=== PATIENT | female | born 1985 | race Caucasian/White ===

== ENCOUNTER → 2016-02-19 | Outpatient (CLI) | payer BC ==
[~2016-02-19] MED LIST: INSU1INJ SC; LEVO100T7 PO; LEVO150T9 PO; LEVOPOW36; MTR600X PO; ONDA4TAB10 SL; OXYC-57 PO; PRENTAB26 PO; ZNTT/150 PO
[2016-02-19 15:57] LABS: BASO % 0.3 %; BASO ABS # 0.03 K/uL (0-0.2); COMPLETE YES; EOS % 1.6 %; HEMATOCRIT 37.6 % (37-47); IG% 0.3 %; LYMPH % 17.4 %; LYMPH ABS # 2.02 K/uL (1.2-3.4); MEAN CELL VOLUME 90.6 fL (80-100); MEAN CORPUSCULAR HEMOGLOBIN 30.6 pg (25-34); MEAN CORPUSCULAR HGB CONC 33.8 g/dl (32-36); MEAN PLATELET VOLUME 10.6 fL (7.4-10.4); MONO % 7.9 %; NEUT % 72.5 %; PLATELET COUNT 328 K/uL (130-400); RED BLOOD COUNT 4.15 M/uL (4.2-5.4); WHITE BLOOD COUNT 11.61 K/uL (4.8-10.8)
[2016-02-19 16:18] LABS: URINE APPEARANCE CLEAR (CLEAR); URINE BILIRUBIN NEG (NEG); URINE COLOR YELLOW; URINE EPITHELIAL CELL AUTO >30 /lpf (0-5); URINE NITRITE NEG (NEG); URINE SPECIFIC GRAVITY 1.017 (1.000-1.030); UROBILINOGEN NEG (NEG)
[2016-02-19 16:35] LABS: MANUAL MICROSCOPIC REQUIRED? NO; REVIEW REQ? YES
[2016-02-19 17:01] LABS: URINE MUCUS PRESENT (NONE PRSENT)
[2016-02-22 14:03] LABS: CHLAMYDIA TRACH RNA*** NOT DETECTED (NOT DETECTED); GC (NEIS GONORRHOEAE)RNA** NOT DETECTED (NOT DETECTED)
== END | disposition home or self-care (01) ==
LOC: C.LAB1850 14:36
PROVIDERS: ATTEND Obstetrics & Gynecology
DX: Z34.00 Encounter for supervision of normal first pregnancy, unspecified trimester (principal)

== ENCOUNTER → 2016-04-01 | Outpatient (CLI) | payer BC ==
[2016-04-01 16:13] LABS: THYROID STIMULATING HORMONE 0.503 uIu/ml (0.300-4.500)
[2016-04-01 18:14] LABS: GTGD 50 Grams
== END | disposition home or self-care (01) ==
LOC: C.LAB1850 14:14
PROVIDERS: ATTEND Obstetrics & Gynecology
DX: Z34.02 Encounter for supervision of normal first pregnancy, second trimester (principal); O99.280 Endocrine, nutritional and metabolic diseases complicating pregnancy, unspecified trimester

== ENCOUNTER → 2016-04-15 | Outpatient (CLI) | payer BC ==
[2016-04-15 10:48] LABS: THYROID STIMULATING HORMONE 3.47 uIu/ml (0.300-4.500)
== END | disposition home or self-care (01) ==
LOC: C.LAB1850 08:28
PROVIDERS: ATTEND Obstetrics & Gynecology
DX: O28.9 Unspecified abnormal findings on antenatal screening of mother (principal); O99.280 Endocrine, nutritional and metabolic diseases complicating pregnancy, unspecified trimester; E03.9 Hypothyroidism, unspecified

== ENCOUNTER → 2016-06-24 | Outpatient (CLI) | payer BC ==
[2016-06-24 16:37] LABS: HEMATOCRIT 34.8 % (37-47)
[2016-06-24 16:56] LABS: URINE APPEARANCE CLEAR (CLEAR); URINE BILIRUBIN NEG (NEG); URINE COLOR YELLOW; URINE EPITHELIAL CELL AUTO >30 /lpf (0-5); URINE NITRITE NEG (NEG); URINE SPECIFIC GRAVITY 1.011 (1.000-1.030); UROBILINOGEN NEG (NEG)
[2016-06-24 16:59] LABS: MANUAL MICROSCOPIC REQUIRED? NO; REVIEW REQ? NO
== END | disposition home or self-care (01) ==
LOC: C.LAB1850 15:17
PROVIDERS: ATTEND Obstetrics & Gynecology
DX: Z34.03 Encounter for supervision of normal first pregnancy, third trimester (principal)

== ENCOUNTER 2016-08-05 15:08 | Outpatient (CLI) | payer BC ==
[~2016-08-05] VITALS: Ht 152.4 cm; Wt 85.5 kg
[~2016-08-05 15:08] MED LIST changes: -INSU1INJ SC; -LEVO100T7 PO; -LEVOPOW36; -MTR600X PO; -OXYC-57 PO
[2016-08-05 18:00] VITALS: Ht 152.4 cm; Wt 85.5 kg
[2016-08-05] MEDS ORDERED: INSU1INJ SC (18:07)
[2016-09-13] MEDS ORDERED: MTR600X PO (07:32)
[2016-09-13] MEDS ORDERED: OXYC-57 PO (07:32)
== END 2016-08-05 18:25 | disposition home or self-care (01) ==
LOC: C.OPB 15:08 → C.LD 15:08 → C.OPB 17:21
PROVIDERS: ATTEND Obstetrics & Gynecology
DX: O36.8130 Decreased fetal movements, third trimester, not applicable or unspecified (principal); Z3A.34 34 weeks gestation of pregnancy

== ENCOUNTER 2016-09-09 07:54 | Inpatient (IN) | payer BC ==
[~2016-09-09] VITALS: Ht 152.4 cm; Wt 86.0 kg
[~2016-09-09 07:54] MED LIST changes: +INSU1INJ SC; -ZNTT/150 PO
[2016-09-09] MEDS ORDERED: LEVOPOW36 (08:31)
[2016-09-09] MEDS ORDERED: LEVO100T7 PO (08:32)
[2016-09-09 08:37] VITALS: Ht 152.4 cm; Wt 86.0 kg
[2016-09-09] MEDS ORDERED: SODIUM CHLORIDE 0.9% 1000ML 1,000 ML IV SCH (08:58)
[2016-09-09] MEDS ORDERED: LACTATED RINGER'S 1000ML 1,000 ML IV PRN (08:58)
[2016-09-09] MEDS ORDERED: LACTATED RINGER'S 1000ML 500 ML IV PRN ×2 (08:58→22:49)
[2016-09-09] MEDS ORDERED: OXYTOCIN 30 UNITS/500ML NSS IV PRN (09:00)
[2016-09-09] MEDS ORDERED: DEXTROSE 50% 50 ML SYR IV PRN ×2 (09:00→10:15)
[2016-09-09 09:26] LABS: MEAN CELL VOLUME 90.9 fL (80-100); MEAN CORPUSCULAR HEMOGLOBIN 29.7 pg (25-34); MEAN CORPUSCULAR HGB CONC 32.7 g/dl (32-36); MEAN PLATELET VOLUME 10.7 fL (7.4-10.4); PLATELET COUNT 188 K/uL (130-400); RED BLOOD COUNT 4.07 M/uL (4.2-5.4); WHITE BLOOD COUNT 10.55 K/uL (4.8-10.8)
[2016-09-09] MEDS ORDERED: CEFAZOLIN IV 2,000 MG in DEXTROSE 5% 50ML 50 ML IV SCH (10:00)
[2016-09-09] MEDS: LACTATED RINGER'S 1000ML 1,000 ML IV SCH ×2 (10:06→18:11)
[2016-09-09] MEDS ORDERED: GLUCAGON FOR INJ 1 MG VIAL SQ PRN (10:15)
[2016-09-09] MEDS ORDERED: GLUCOSE 10 TABS/TUBE PO PRN (10:15)
[2016-09-09] MEDS ORDERED: GLUCOSE 40% GEL 15 GM TUBE PO PRN (10:15)
[2016-09-09] MEDS: DEXTROSE 5% 1000ML 1,000 ML IV SCH ×3 (10:18→21:39)
[2016-09-09] MEDS: INSULIN REGULAR 250 UNITS in SODIUM CHLORIDE 0.9% 250ML 250 ML IV SCH ×4 (13:35→23:36)
[2016-09-09] MEDS: CEFAZOLIN IV 1,000 MG in DEXTROSE 5% 50ML 50 ML IV PRN (19:08)
[2016-09-09] MEDS ORDERED: FENTANYL 2MCG/ML ROPIV 1.25MG/ML 100ML BAG EPI ONE (21:24)
[2016-09-09] MEDS ORDERED: FENTANYL CITRATE INJ 50 MCG/1 ML 2 ML VIAL ONE (21:24)
[2016-09-09] MEDS ORDERED: BUPIVACAINE 0.25% 30 ML VIAL ONE (21:24)
[2016-09-09] MEDS ORDERED: EpHEDrine SULFATE INJ 50 MG/ML AMP ONE (21:24)
[2016-09-09] MEDS ORDERED: NALOXONE HCL INJ 1 MG in SODIUM CHLORIDE 0.9% 1000ML 1,000 ML IV PRN (22:49)
[2016-09-09] MEDS ORDERED: NALBUPHINE HCL INJ 10 MG/ML AMP IV PRN (23:00)
[2016-09-09] MEDS ORDERED: DiphenhydrAMINE HCL 50 MG/ML VIAL IV PRN (23:00)
[2016-09-09] MEDS ORDERED: EpHEDrine SULFATE INJ 50 MG/ML AMP IV PRN (23:00)
[2016-09-09] MEDS ORDERED: NALOXONE HCL INJ 0.4 MG/1 ML VIAL/CARP IV PRN (23:00)
[2016-09-10] MEDS: LACTATED RINGER'S 1000ML 1,000 ML IV SCH ×2 (01:48→11:04)
[2016-09-10] MEDS: ONDANSETRON INJ 2 MG/ML 2 ML VIAL IV PRN ×2 (01:54→07:29)
[2016-09-10] MEDS: CEFAZOLIN IV 1,000 MG in DEXTROSE 5% 50ML 50 ML IV PRN ×2 (03:47→11:30)
[2016-09-10] MEDS: FENTANYL 2MCG/ML ROPIV 1.25MG/ML 100ML BAG EPI PRN ×4 (06:29→15:00)
[2016-09-10] MEDS: INSULIN REGULAR 250 UNITS in SODIUM CHLORIDE 0.9% 250ML 250 ML IV SCH ×4 (06:31→17:33)
[2016-09-10] MEDS: DEXTROSE 5% 1000ML 1,000 ML IV SCH ×2 (06:32→08:47)
--- NOTE | 2016-09-10 08:04 | Medical Student: [facility] ---
Medical Student Progress Note Date of Service Sep 10, 2016. Progress Note pt is a 31 yo at 39 and 4/7 weeks GA who presented yesterday for induction. She has been receiving pitocin. Due to the slow progression of labor , an IUPC has been placed to assess the strength of her contractions. baseline HR 130, moderate variability, accels present, no decels. [place] shows ctx every 2 to 4 minutes. Cervix exam by Dr. Bolivar shows /.
[2016-09-10] MEDS ORDERED: PROMETHAZINE HCL INJ 12.5 MG in SODIUM CHLORIDE 0.9% 50ML 50 ML IV STA (09:16)
[2016-09-10] MEDS ORDERED: CITRIC ACID/SODIUM CITRATE 15 ML UDC ONE ×2 (18:16→21:03)
[2016-09-10] MEDS ORDERED: LIDOCAINE/EPINEPHRINE 2% 1:200,000 20 ML SDV ONE (18:30)
[2016-09-10] MEDS ORDERED: CITRIC ACID/SODIUM CITRATE 15 ML UDC PO ONE (18:30)
[2016-09-10] MEDS ORDERED: OXYTOCIN INJ 10 UNITS/ML VIAL ONE (18:30)
[2016-09-10] MEDS ORDERED: MoRPHine SULFATE PF 1 MG/ML 10 ML AMP/VIAL ONE (18:31)
[2016-09-10] MEDS ORDERED: CEFAZOLIN IV 2,000 MG in DEXTROSE 5% 50ML 50 ML IV SCH (18:45)
[2016-09-10] MEDS ORDERED: ONDANSETRON INJ 2 MG/ML 2 ML VIAL ONE (21:26)
[2016-09-10] MEDS ORDERED: CARBOPROST TROMETHAMINE 250 MCG/ML AMP ONE (21:39)
[2016-09-10] MEDS ORDERED: SENNA 8.6 MG TAB PO PRN (22:00)
[2016-09-10] MEDS ORDERED: HYDROCORTISONE ACETATE 25 MG SUPP PR PRN (22:00)
[2016-09-10] MEDS ORDERED: BENZOCAINE 20% AER SPR 82.5 GM CAN EXT PRN (22:00)
[2016-09-10] MEDS ORDERED: SUPERCREAM 0.870 % 15GM JAR EXT PRN (22:00)
[2016-09-10] MEDS ORDERED: LANOLIN OINT EXT PRN ×2 (22:00)
[2016-09-10] MEDS ORDERED: DiphenhydrAMINE HCL 50 MG/ML VIAL IV PRN (22:00)
[2016-09-10] MEDS ORDERED: MAGNESIUM HYDROXIDE SUSP 30 ML UDC PO PRN (22:00)
[2016-09-10] MEDS ORDERED: CONTINUE MEDICATION ONE (22:15)
[2016-09-10] MEDS ORDERED: MoRPHine SULFATE PF 1 MG/ML 10 ML AMP/VIAL EPI PRN (22:15)
[2016-09-10] MEDS ORDERED: FENTANYL CITRATE INJ 50 MCG/1 ML 2 ML VIAL IV PRN (22:15)
[2016-09-10] MEDS ORDERED: ATROPINE SULFATE 0.1 MG/ML 5ML SYR IV PRN (22:15)
[2016-09-10] MEDS ORDERED: NO NARCOTICS OR SEDATIVES SCH (22:15)
[2016-09-10] MEDS ORDERED: KETOROLAC TROMETHAMINE 30 MG/ML VIAL IV. PRN ×2 (22:15)
[2016-09-10] MEDS ORDERED: EpHEDrine SULFATE INJ 50 MG/ML AMP IV PRN (22:15)
[2016-09-10] MEDS ORDERED: ONDANSETRON INJ 2 MG/ML 2 ML VIAL IV PRN (22:15)
[2016-09-10] MEDS ORDERED: MEPERIDINE HCL 25 MG/ML CARP IV PRN (22:15)
--- NOTE | 2016-09-10 22:16 | Anesthesiology Progress Note ---
Anesthesia Post Op Note Date & Time Sep 10, 2016 at 22:16 Vital Signs Pain Intensity: 2.0 Notes Mental Status: alert / awake / arousable, participated in evaluation Pt Amnestic to Procedure: Yes Nausea / Vomiting: adequately controlled Pain: adequately controlled Airway Patency, RR, SpO2: stable & adequate BP & HR: stable & adequate Hydration State: stable & adequate Neuraxial Anesthesia: was administered, sensory block is resolving Anesthetic Complications: no major complications apparent
[2016-09-10] MEDS: OXYTOCIN INJ 20 UNITS in LACTATED RINGER'S 1000ML 1,000 ML IV SCH (22:47)
--- NOTE | 2016-09-10 23:22 | [facility] Post Operative Brief Note ---
Immediate Operative Summary Operative Date Sep 10, 2016. Pre-Operative Diagnosis Failure to descend Post-Operative Diagnosis Failure to descend Procedure(s) Performed Primary caesarean section of live female child at [address] Frazier Truck Driver Heavy Surgeon(s) Mery Lu RN Estimated Blood Loss 500CC Findings normal anatomy Specimens Placenta hold Cord Blood cord gases Drains Medina Anesthesia General Complication(s) None Disposition L&D
[2016-09-11] VITALS (22 sets, daily range): BP systolic 105–120; BP diastolic 65–73; PULSE 70–87; TEMP 36.4–37; O2SAT 90–99
--- NOTE | 2016-09-11 00:17 | OPERATIVE REPORT ---
DATE OF OPERATION: 09/10/2016 PREOPERATIVE DIAGNOSIS: Failure to descend. POSTOPERATIVE DIAGNOSIS: Failure to descend. PROCEDURE: Low transverse section. SURGEON: Dr. Frazier. ASSISTING: Mery Lu RN. ESTIMATED BLOOD LOSS: 500 mL FINDINGS: Normal anatomy. SPECIMENS: Cord gases, cord blood. DRAINS: [place] catheter. ANESTHETIC: Epidural. COMPLICATIONS: None. DISPOSITION: Labor and delivery. Note, the patient was followed by Dr. Rosado for the day because of an emergency situation that involved Dr. Rosado and another patient. I performed the for her as she was tied up in the operating room with the other patient and the patient Zenaida required section. I reviewed with the patient the consent. I discussed risks including infection, injury to bowel, bladder, ureter, vessels, deep vein thrombosis and pulmonary embolus. With this being said, the patient had a section for failure to progress and for pushing well over 3 hours. DESCRIPTION OF PROCEDURE: The patient taken to the operating room, prepped and draped in supine position with a leftward tilt. Medina catheter being placed by nursing. Epidural anesthetic was adequate and tested with pickups with teeth and IV Ancef 2 grams given preoperatively. Scalpel used to make a Pfannenstiel incision cutting down through subcutaneous fat to the fascia in the midline. Rectus muscles split. Peritoneal cavity entered in a superior location. Peritoneal cavity opening then enlarged, bladder retractor placed. Metzenbaums used to dissect away the low bladder flap and then the lower segment of the uterus was visualized. A transverse incision made with scalpel. Entry was done actually bluntly and then opening extended with the dredge pump operator's fingers. Baby was delivered by flexing the head and gentle pressure on the abdomen. No excessive force was used. Live vigorous . Cord clamped and cut. The fluid was clear and there was no nuchal cord. Cord gases obtained. Cord blood obtained. Placenta removed with gentle traction. We exteriorized the uterus. IV Pitocin was started. Uterus was initially boggy. 0.25 mg of Hemabate was then injected directly into the uterus, taking care to avoid intravascular injection. At this stage, we ensured all placenta was removed. Uterus was then closed in the usual fashion. There was no extension, so we closed the uterus in 2 layers, 0 Monocryl locked and second reinforcing 0 Monocryl. After generous irrigation and suction of cul-de-sac and bladder regions, uterus was placed back into the peritoneal cavity. After reinspection, hemostasis was excellent. Retractors removed from the peritoneal cavity. Sponge and instrument counts correct. Urine was clear at this stage. Fascia was closed with 0 Vicryl, subcutaneous fat was closed with 2-0 Vicryl, and 4-0 subcuticular Monocryl closure of the skin and Steri-Strips applied. Sponge and instrument counts correct. I attest to the content of the Intraoperative Record and any orders documented therein. Any exceptions are noted below. MTDD
[2016-09-11] MEDS: ONDANSETRON INJ 2 MG/ML 2 ML VIAL IV PRN (03:19)
--- NOTE | 2016-09-11 06:09 | OB/GYN Progress Note ---
[employer] Progress Note Date of Service Sep 11, 2016. Subjective conversation w/ patient, physical exam, chart review, lab review Ambulation: limited ambulation Voiding: dubois catheter in place Passing Gas: No Diet Tolerance: Clear Liquids Lochia: Moderate Feeding Type: Breast Feeding Pain: 1/10 controlled with pain meds Review of Systems Constitutional: No fever Respiratory: No shortness of breath Cardiac: No chest pain Abdomen: + nausea, + vomiting Female : No dysuria Objective Vital Signs Date Time Temp Pulse Resp B/P (MAP) Pulse Ox O2 Delivery O2 Flow Rate FiO2 09/11/16 04:30 18 99 09/11/16 04:00 36.6 80 20 110/70 (83) 99 Room Air 09/11/16 03:30 18 99 09/11/16 02:30 18 99 09/11/16 01:30 18 99 09/11/16 00:30 Room Air 09/11/16 00:30 36.4 83 18 109/70 (83) 99 Room Air 09/11/16 00:30 20 99 Physical Exam General Appearance: WELL-APPEARING Respiratory/Chest: lungs clear, normal breath sounds, no respiratory distress Cardiovascular: regular rate, rhythm Abdomen: normal bowel sounds, non tender, soft Fundus: Firm, Relation to Umbilicus (4 finger breaths below) Incision Description: Clean, Dry & Intact Extremities: non-tender, normal inspection, + pedal edema (1+) Laboratory Results Last 24 Hours Test 09/10/16 06:30 09/10/16 07:33 09/10/16 08:32 09/10/16 09:33 Bedside Glucose 101 mg/dl 82 mg/dl 90 mg/dl 95 mg/dl Test 09/10/16 10:26 09/10/16 11:35 09/10/16 12:33 09/10/16 13:34 Bedside Glucose 86 mg/dl 80 mg/dl 93 mg/dl 98 mg/dl Test 09/10/16 14:30 09/10/16 15:33 09/10/16 16:31 09/10/16 17:30 Bedside Glucose 85 mg/dl 98 mg/dl 104 mg/dl 91 mg/dl Test 09/10/16 18:31 09/10/16 22:39 09/11/16 05:58 Bedside Glucose 102 mg/dl 129 mg/dl Medications Current Inpatient Medications Medications (Trade) Dose Ordered Sig/Kareen Route Start Time Stop Time Status Last Admin Dose Admin Sodium Chloride 1,000 ml @ 0 mls/hr Q0M IV 09/09/16 08:58 10/09/16 08:57 Dextrose 1,000 ml @ 0 mls/hr Q0M IV 09/09/16 08:58 10/09/16 08:57 09/10/16 08:47 100 MLS/HR Insulin Human Regular 250 units/ Sodium Chloride 252.5 ml @ 0 mls/hr DAILY@1130 IV 09/09/16 11:30 10/09/16 11:29 09/10/16 17:33 0.5 MLS/HR Dextrose (Dextrose 50% 50ML Syringe) 25-50mL of 50% DW IV ... UD PRN IV 09/09/16 09:00 10/09/16 08:59 Glucose (Glucose 40% Gel) 15-30 GRAMS 15 GRAMS... UD PRN PO 09/09/16 10:15 10/09/16 10:14 Glucose (Glucose Chew Tab) 4-8 Tablets 4 Tabl... UD PRN PO 09/09/16 10:15 10/09/16 10:14 Dextrose (Dextrose 50% 50ML Syringe) 25-50ML OF 50% DW IV FOR... UD PRN IV 09/09/16 10:15 10/09/16 10:14 Glucagon (Glucagon Inj) 1 mg UD PRN SQ 09/09/16 10:15 10/09/16 10:14 Naloxone HCl (Narcan Inj) 0.1 mg UD PRN IV 09/09/16 23:00 09/11/16 15:45 Lactated Ringer's 500 ml @ 999 mls/hr Q31M PRN IV 09/09/16 22:49 09/11/16 15:45 Ephedrine Sulfate (EpHEDrine SULFATE INJ) 10 mg Q5M PRN IV 09/09/16 23:00 09/11/16 15:45 Diphenhydramine HCl (Benadryl Inj) 25 mg Q6H PRN IV 09/09/16 23:00 09/11/16 15:45 Nalbuphine HCl (Nubain Inj) 5 mg Q10M PRN IV 09/09/16 23:00 09/11/16 15:45 Naloxone HCl 1 mg/ Sodium Chloride 1,002.5 ml @ 50 mls/hr Q20H3M PRN IV 09/09/16 22:49 09/11/16 15:45 Ondansetron HCl (Zofran Inj) 4 mg Q6H PRN IV 09/09/16 23:00 09/11/16 15:45 09/11/16 03:19 4 MG Oxytocin 20 units/ Lactated Ringer's 1,002 ml @ 125 mls/hr Q8H1M IV 09/10/16 22:30 10/10/16 22:29 09/10/16 22:47 125 MLS/HR Lactated Ringer's 1,000 ml @ 125 mls/hr Q8H IV 09/11/16 06:30 10/11/16 06:29 Ketorolac Tromethamine (Toradol Inj) 30 mg Q6H PRN IV. 09/11/16 15:45 09/16/16 15:44 Meperidine HCl (Demerol Inj) 50 mg Q4H PRN IV 09/11/16 15:45 09/25/16 15:44 Meperidine HCl (Demerol Inj) 75 mg Q4H PRN IV 09/11/16 15:45 09/25/16 15:44 Oxycodone/ Acetaminophen (Percocet 5-325mg Tab) 1 tab Q4H PRN PO 09/11/16 15:45 09/25/16 15:44 Oxycodone/ Acetaminophen (Percocet 5-325mg Tab) 2 tab Q4H PRN PO 09/11/16 15:45 09/25/16 15:44 Ibuprofen (Motrin Tab) 600 mg Q4H PRN PO 09/10/16 22:00 10/10/16 21:59 Promethazine HCl 25 mg/Sodium Chloride 51 ml @ 204 mls/hr Q4H PRN IV 09/11/16 15:45 10/11/16 15:44 Ondansetron HCl (Zofran Inj) 4 mg Q4H PRN IV 09/11/16 15:45 10/11/16 15:44 Prenat Multivit/ [place]/Iron/Folic Ac ( Vitamin Tab) 1 tab DAILY PO 09/11/16 08:00 10/11/16 07:59 Bisacodyl (Dulcolax Tab) 5 mg HS ONCE PO 09/11/16 22:00 09/11/16 22:01 Bisacodyl (Dulcolax Supp) 10 mg PRN PRN MA 09/12/16 22:45 10/12/16 22:44 Docusate Sodium (coLACE CAP) 100 mg BID PO 09/11/16 08:00 10/11/16 07:59 Magnesium Hydroxide (Milk Of Magnesia Susp) 30 ml HS PRN PO 09/10/16 22:00 10/10/16 21:59 Cocaine HCl (Supercream 0.870% Cr) BID PRN EXT 09/10/16 22:00 09/24/16 21:59 Lanolin (Lanolin Oint) PRN PRN EXT 09/10/16 22:00 10/10/16 21:59 Hydrocortisone Acetate (Anusol Hc Supp) 25 mg BID PRN MA 09/10/16 22:00 10/10/16 21:59 Benzocaine (Dermoplast Aero Spr) 1 appln PRN PRN EXT 09/10/16 22:00 10/10/16 21:59 Zolpidem Tartrate (Ambien Tab) 5 mg HSZ PRN PO 09/11/16 15:45 10/11/16 15:44 Simethicone (Mylicon Chew Tab) 80 mg QID PO 09/11/16 08:00 10/11/16 08:59 Diphenhydramine HCl (Benadryl Cap) 25 mg QID PRN PO 09/11/16 15:45 10/11/16 15:44 Senna (Senokot Tab) 17.2 mg HS PRN PO 09/10/16 22:00 10/10/16 21:59 Ondansetron HCl (Zofran Inj) 4 mg ONE PRN IV 09/10/16 22:15 Ketorolac Tromethamine (Toradol Inj) 30 mg Q6H PRN IV. 09/10/16 22:15 09/11/16 15:45 09/10/16 22:44 30 MG Meperidine HCl (Demerol Inj) 25 mg Q15M PRN IV 09/10/16 22:15 09/11/16 15:45 Miscellaneous Information (Dc Intraspinal Morphine) 1 ea TODAY@1545 N/A 09/11/16 15:45 09/11/16 15:46 Miscellaneous Information (No Narcotics Or Sedatives) 1 ea UD N/A 09/10/16 22:15 09/11/16 15:45 Morphine Sulfate (Duramorph Pf Inj) TODAY PRN EPI 09/10/16 22:15 09/11/16 15:45 Assessment and Plan Post-Op Day Number: 1 Continue Routine Care: A/P: This is a 31y/o female, , POD#1 s/p for FTD. She is ambulating and clinically stable. Plan: - Vitals signs are reviewed and WNL (Tmax 36.6 ) - Last Hgb is 9.9 (09/11) - Blood type A+, GBS pos, Rubella Immune - Routine post operative care - Encourage ambulation, monitor and control pain with medication as needed, continue with regular diet as tolerated and monitor lochia - Stool softeners and sitz bath recommended - Encourage breast feeding and educate about breast feeding Resident Physician Supervision Note: I was present with Dr. Mast during the history and exam. I discussed the case with the resident and agree with the findings and plan as documented in the note. Any exceptions or clarifications are listed here: POD#1 for failure to descend. Doing well. Will plan for ambulation and removal of dubois later today. Continue routine postop care. Documented By: Tawana Rosado Resident Involvement: Resident Care Provided Care Provided: OB Delivery
[2016-09-11] MEDS ORDERED: LACTATED RINGER'S 1000ML 1,000 ML IV SCH (06:30)
[2016-09-11 06:41] LABS: BASO % 0.1 %; BASO ABS # 0.02 K/uL (0-0.2); COMPLETE YES; EOS % 0.2 %; HEMATOCRIT 29.7 % (37-47); IG% 0.5 %; LYMPH % 10.8 %; LYMPH ABS # 2.11 K/uL (1.2-3.4); MEAN CELL VOLUME 91.1 fL (80-100); MEAN CORPUSCULAR HEMOGLOBIN 30.4 pg (25-34); MEAN CORPUSCULAR HGB CONC 33.3 g/dl (32-36); MEAN PLATELET VOLUME 10.3 fL (7.4-10.4); MONO % 8.9 %; NEUT % 79.5 %; PLATELET COUNT 198 K/uL (130-400); RED BLOOD COUNT 3.26 M/uL (4.2-5.4); WHITE BLOOD COUNT 19.51 K/uL (4.8-10.8)
[2016-09-11] MEDS: OXYTOCIN INJ 20 UNITS in LACTATED RINGER'S 1000ML 1,000 ML IV SCH (06:44)
[2016-09-11] MEDS ORDERED: NURSING VERBAL MED ORDER ONE (06:45)
[2016-09-11] MEDS ORDERED: PROMETHAZINE HCL INJ 25 MG in SODIUM CHLORIDE 0.9% 50ML 50 ML IV ONE (07:00)
[2016-09-11] MEDS: PRENATAL VITAMIN TAB PO SCH (08:00)
[2016-09-11] MEDS: DOCUSATE SODIUM 100 MG CAP PO SCH ×2 (08:00→19:39)
[2016-09-11] MEDS: SIMETHICONE 80 MG CHEW PO SCH ×3 (08:00→19:39)
[2016-09-11] MEDS ORDERED: ONDANSETRON INJ 2 MG/ML 2 ML VIAL IV PRN (15:45)
[2016-09-11] MEDS ORDERED: ZOLPIDEM TARTRATE 5 MG TAB PO PRN (15:45)
[2016-09-11] MEDS ORDERED: KETOROLAC TROMETHAMINE 30 MG/ML VIAL IV. PRN (15:45)
[2016-09-11] MEDS ORDERED: PROMETHAZINE HCL INJ 25 MG in SODIUM CHLORIDE 0.9% 50ML 50 ML IV PRN (15:45)
[2016-09-11] MEDS ORDERED: DC INTRASPINAL MORPHINE SCH (15:45)
[2016-09-11] MEDS ORDERED: MEPERIDINE HCL 50 MG/ML CARP IV PRN ×2 (15:45)
[2016-09-11] MEDS ORDERED: OXYCODONE/ACETAMINOPHEN 5-325 TAB PO PRN (15:45)
[2016-09-11] MEDS: IBUPROFEN 600 MG TAB PO PRN (17:29)
[2016-09-11] MEDS ORDERED: BISACODYL 5 MG TABEC ONE (19:35)
[2016-09-11] MEDS: OXYCODONE/ACETAMINOPHEN 5-325 TAB PO PRN (19:40)
[2016-09-11] MEDS ORDERED: BISACODYL 5 MG TABEC PO ONE (22:00)
[2016-09-12] MEDS: OXYCODONE/ACETAMINOPHEN 5-325 TAB PO PRN ×4 (07:26→23:54)
[2016-09-12] MEDS: IBUPROFEN 600 MG TAB PO PRN ×4 (07:27→23:53)
[2016-09-12] MEDS: DOCUSATE SODIUM 100 MG CAP PO SCH ×2 (07:28→20:02)
[2016-09-12] MEDS: SIMETHICONE 80 MG CHEW PO SCH ×4 (07:28→20:02)
[2016-09-12 07:50] VITALS: BP 118/72; PULSE 91; TEMP 36.8; O2SAT 96
[2016-09-12] MEDS: PRENATAL VITAMIN TAB PO SCH (08:00)
--- NOTE | 2016-09-12 08:32 | Progress Note ---
Subjective Sep 12, 2016. Subjective conversation w/ patient, physical exam, lab review Ambulation: ambulating normally Voiding: no voiding problems, dubois catheter in place Diet Tolerance: Regular Diet Lochia: Small Feeding Type: Breast Feeding Objective Vital Signs Date Time Temp Pulse Resp B/P (MAP) Pulse Ox O2 Delivery O2 Flow Rate FiO2 09/11/16 23:40 37.0 81 16 115/66 (82) 09/11/16 23:40 Room Air 09/11/16 19:45 36.7 87 18 105/71 (82) 96 Room Air 09/11/16 16:05 96 Room Air 09/11/16 16:05 36.8 80 18 120/73 (89) 96 Room Air 09/11/16 15:30 18 96 09/11/16 14:30 20 93 09/11/16 13:30 18 92 09/11/16 12:30 18 98 09/11/16 12:10 36.5 84 20 115/65 (82) 09/11/16 11:30 16 99 09/11/16 10:30 18 98 09/11/16 09:30 18 98 09/11/16 09:00 36.5 70 18 119/66 (83) 98 Nasal Cannula 2.0 09/11/16 09:00 Nasal Cannula Physical Exam General Appearance: WELL-APPEARING Respiratory/Chest: lungs clear Abdomen: non tender Fundus: Firm Incision Description: Clean, Dry & Intact Extremities: no calf tenderness Laboratory Results Last 24 Hours Test 09/12/16 06:12 Hemoglobin 9.7 g/dL Hematocrit 30.0 % Assessment and Plan Problem List Medical Problems: (1) First trimester Status: Acute (2) Nausea and vomiting Status: Acute Post-Op Day#: 2 Continue Routine Care: ccc
--- NOTE | 2016-09-12 08:33 | Discharge Instructions ---
Discharge Instructions Date of Service Sep 12, 2016. Admission Reason for Admission: Induction Discharge Discharge Diagnosis / Problem: c/s Discharge Goals Goal(s): Routine recovery after Activity Recommendations Activity Limitations: per Instructions/Follow-up section . Instructions / Follow-Up Instructions / Follow-Up ACTIVITY RECOMMENDATIONS: * Gradual return to full activity over the next 2-3 weeks. * No lifting - nothing heavier than baby over the next 2-3 weeks. * Do not engage in vigorous exercise, sexual activity or sports until cleared by your physician. * Do not drive or operate any motorized equipment until cleared by your physician. * You may shower/bathe daily. MEDICATIONS: For discomfort or pain, you may use Acetaminophen (Tylenol), Ibuprofen (Advil), or Naproxen (Aleve) following the package directions. For constipation you may use Colace following the package directions. BREAST CARE: If you are not breast feeding: * Wear a supportive bra 24 hours a day for one to two weeks. * Avoid stimulating your breasts and nipples as much as possible during the first few weeks after delivery. * When taking a shower, have the warm water hit your back, not breasts. * When your breasts feel full, apply ice packs. Usually three to four times a day helps ease the discomfort. * Take a mild pain medication (Tylenol / Motrin) when you are uncomfortable. If breast feeding: * Use breast milk to lubricate nipples. Lansinoh cream may be used for sore nipples. You do not need to remove cream prior to breast feeding. If using a different brand of cream, check the label for directions regarding removal of cream prior to nursing. * Wear a supportive bra. * If having problems with breasts or breast feeding, call a surgical product sales consultant or your health care provider. SPECIAL CARE INSTRUCTIONS: When you are discharged from the hospital, it is important for you to follow the instructions listed below: * During the first week at home, you should be able to care for yourself and your baby. In addition, the usual light household activities are encouraged. * Limit your activities to the way you feel. Do not try to clean the house or move furniture. Be sensible. * If you actively engage in sports and have done so up until the time of your delivery, you may resume these activities as soon as you feel able. This may take up to one month or even longer. Use good judgment. * Continue to take your vitamins for at least six weeks after the of your baby. * Your diet need not be limited unless you were on a special diet before your delivery. Breast-feeding mothers need around 2500 calories per day and at least 64-80 ounces of fluid per day (8 to 10 glasses). * You should eat foods from the four major food groups. Crash diets or fad diets are to be avoided. Eating lean meats, fresh fruits and vegetables, low-fat dairy products, high fiber foods and a regular exercise program, will help you get back to your pre- weight without putting your health at risk. * Constipation is sometimes a problem after delivery. Take a mild laxative as needed. If breast feeding, Milk of Magnesia is acceptable to use. You may use a suppository or Fleets enema. * A daily shower or tub bath is suggested. Wash incision daily with warm soapy water and pat dry. It doesn't need to be covered unless drainage is present. * A bloody vaginal discharge will usually continue until around four weeks . A small amount of bleeding may continue for as long as six weeks. Vaginal discharge changes from the bright red bleeding after delivery to pink then brownish and finally yellowish-pink before becoming white and disappearing. * Bleeding may increase with activity. Your first period may come in 4-8 weeks. If you are breast feeding, your period may be delayed even longer. * [place] (sex) can begin whenever both you and your partner feel comfortable and do not have any form of genital infection. It is recommended that you wait at least six weeks for internal and external healing to occur. If you have questions, please talk to your health care practitioner. A condom should be used to prevent infection and . * Foreplay, gentle intercourse and lubrication is very important the first several times to prevent pain. A water-based lubricant such as K-Y jelly or Astroglide may be used. * If you have RH negative blood and your baby is RH positive, you will receive RHOGAM by injection prior to discharge. The nurse will give you a card to keep with you that has the date and place that you received RHOGAM after delivery. * During your care, you had a Rubella screen done to check for the presence of rubella antibodies in your blood. If your test was negative, you will receive a Rubella vaccine prior to discharge. This vaccine may cause a fever, soreness at the injection site and flu-like symptoms. If these symptoms persist, notify your health care practitioner. is not advised for one month after a Rubella vaccine. * Verbalizes understanding of car seat law as reviewed with patient nursing. * Car Seat hand-out given and reviewed with patient by nursing. * Shaken baby information reviewed with patient by nursing. Call you doctor if: * Heavy bleeding (saturating several pads an hour) or passing clots the size of your fist. * A fever >101 degrees F (38.3 degrees C) on two occasions four hours apart and /or chills. * Unusual pain in the pelvic or vaginal areas. * Call the doctor for any increased redness, drainage or swelling around the incision and any pain unrelieved by prescribed pain medication. * "Baby Blues" lasting longer than two weeks. If you have any questions or concerns, call your health care practitioner at . FOLLOW UP VISIT: * Please call the office at to schedule a 6 week examination. It is important you keep this appointment. It is important for you to make arrangements for either yearly or twice yearly check-ups thereafter. Current Hospital Diet Patient's current hospital diet: Regular OB Diet Discharge Diet Recommended Diet: Regular OB Diet Procedures Procedures Performed: Primary caesarean section of live female child at 2133 Pending Studies Studies pending at discharge: no Medical Emergencies . Who to Call and When: Medical Emergencies: If at any time you feel your situation is an emergency, please call [phone] immediately. . Non-Emergent Contact Non-Emergency issues call your: Wastewater Operator . . "Provider Documentation" section prepared by Kelechi Frazier. . VTE Core Measure Inpt VTE Proph given/why not?: Mao Hathaway, SCD's
[2016-09-12] MEDS: LEVOTHYROXINE 100 MCG TAB PO SCH (12:11)
[2016-09-12 16:00] VITALS: BP 132/85; PULSE 85; TEMP 36.8; O2SAT 96; O2SAT 97
[2016-09-12] MEDS ORDERED: BISACODYL 10 MG SUPP PR PRN (22:45)
[2016-09-13] VITALS: BP 117/77; PULSE 83; TEMP 36.8
--- NOTE | 2016-09-13 05:59 | OB/GYN Progress Note ---
IC DESIGN ENGINEER Progress Note Date of Service Sep 13, 2016. Subjective conversation w/ patient, physical exam, chart review, lab review Ambulation: ambulating normally Passing Gas: Yes Diet Tolerance: Regular Diet Lochia: Moderate Feeding Type: Breast Feeding Pain: 4/10 controlled with pain meds Review of Systems Constitutional: No fever Cardiac: No chest pain Abdomen: No nausea, No vomiting Female : No dysuria Objective Vital Signs Date Time Temp Pulse Resp B/P (MAP) Pulse Ox O2 Delivery O2 Flow Rate FiO2 09/13/16 00:00 Room Air 09/13/16 00:00 36.8 83 18 117/77 (90) Room Air 09/12/16 16:00 36.8 85 20 132/85 (101) 97 Room Air 09/12/16 16:00 96 Room Air 09/12/16 07:50 36.8 91 20 118/72 (87) 96 Room Air 09/12/16 07:50 96 Room Air Physical Exam General Appearance: WELL-APPEARING Respiratory/Chest: lungs clear, normal breath sounds, no respiratory distress Cardiovascular: regular rate, rhythm Abdomen: normal bowel sounds, non tender, soft Fundus: Firm, Relation to Umbilicus (4 finger breaths below) Incision Description: Clean, Dry & Intact Extremities: non-tender, no pedal edema Laboratory Results Last 24 Hours Test 09/12/16 06:12 Hemoglobin 9.7 g/dL Hematocrit 30.0 % Medications Current Inpatient Medications Medications (Trade) Dose Ordered Sig/Kareen Route Start Time Stop Time Status Last Admin Dose Admin Dextrose (Dextrose 50% 50ML Syringe) 25-50mL of 50% DW IV ... UD PRN IV 09/09/16 09:00 10/09/16 08:59 Glucose (Glucose 40% Gel) 15-30 GRAMS 15 GRAMS... UD PRN PO 09/09/16 10:15 10/09/16 10:14 Glucose (Glucose Chew Tab) 4-8 Tablets 4 Tabl... UD PRN PO 09/09/16 10:15 10/09/16 10:14 Dextrose (Dextrose 50% 50ML Syringe) 25-50ML OF 50% DW IV FOR... UD PRN IV 09/09/16 10:15 10/09/16 10:14 Glucagon (Glucagon Inj) 1 mg UD PRN SQ 09/09/16 10:15 10/09/16 10:14 Oxytocin 20 units/ Lactated Ringer's 1,002 ml @ 125 mls/hr Q8H1M IV 09/10/16 22:30 10/10/16 22:29 09/11/16 06:44 125 MLS/HR Lactated Ringer's 1,000 ml @ 125 mls/hr Q8H IV 09/11/16 06:30 10/11/16 06:29 Ketorolac Tromethamine (Toradol Inj) 30 mg Q6H PRN IV. 09/11/16 15:45 09/16/16 15:44 Meperidine HCl (Demerol Inj) 50 mg Q4H PRN IV 09/11/16 15:45 09/25/16 15:44 Meperidine HCl (Demerol Inj) 75 mg Q4H PRN IV 09/11/16 15:45 09/25/16 15:44 Oxycodone/ Acetaminophen (Percocet 5-325mg Tab) 1 tab Q4H PRN PO 09/11/16 15:45 09/25/16 15:44 09/12/16 23:54 1 TAB Oxycodone/ Acetaminophen (Percocet 5-325mg Tab) 2 tab Q4H PRN PO 09/11/16 15:45 09/25/16 15:44 Ibuprofen (Motrin Tab) 600 mg Q4H PRN PO 09/10/16 22:00 10/10/16 21:59 09/12/16 23:53 600 MG Promethazine HCl 25 mg/Sodium Chloride 51 ml @ 204 mls/hr Q4H PRN IV 09/11/16 15:45 10/11/16 15:44 Ondansetron HCl (Zofran Inj) 4 mg Q4H PRN IV 09/11/16 15:45 10/11/16 15:44 Prenat Multivit/ [place]/Iron/Folic Ac ( Vitamin Tab) 1 tab DAILY PO 09/11/16 08:00 10/11/16 07:59 Bisacodyl (Dulcolax Supp) 10 mg PRN PRN PA 09/12/16 22:45 10/12/16 22:44 Docusate Sodium (coLACE CAP) 100 mg BID PO 09/11/16 08:00 10/11/16 07:59 09/12/16 20:02 100 MG Magnesium Hydroxide (Milk Of Magnesia Susp) 30 ml HS PRN PO 09/10/16 22:00 10/10/16 21:59 Cocaine HCl (Supercream 0.870% Cr) BID PRN EXT 09/10/16 22:00 09/24/16 21:59 Lanolin (Lanolin Oint) PRN PRN EXT 09/10/16 22:00 10/10/16 21:59 Hydrocortisone Acetate (Anusol Hc Supp) 25 mg BID PRN PA 09/10/16 22:00 10/10/16 21:59 Benzocaine (Dermoplast Aero Spr) 1 appln PRN PRN EXT 09/10/16 22:00 10/10/16 21:59 Zolpidem Tartrate (Ambien Tab) 5 mg HSZ PRN PO 09/11/16 15:45 10/11/16 15:44 Simethicone (Mylicon Chew Tab) 80 mg QID PO 09/11/16 08:00 10/11/16 08:59 09/12/16 20:02 80 MG Diphenhydramine HCl (Benadryl Cap) 25 mg QID PRN PO 09/11/16 15:45 10/11/16 15:44 Senna (Senokot Tab) 17.2 mg HS PRN PO 09/10/16 22:00 10/10/16 21:59 Ondansetron HCl (Zofran Inj) 4 mg ONE PRN IV 09/10/16 22:15 Levothyroxine Sodium (Synthroid Tab) 100 mcg DAILYBB PO 09/12/16 09:00 10/12/16 08:59 09/12/16 12:11 100 MCG Assessment and Plan Post-Op Day Number: 3 Continue Routine Care: A/P: This is a 31 y/o female, , POD # 3 s/p for FTD. She is ambulating and clinically stable to discharge. - Vital signs are reviewed and WNL (Tmax 37) - Last Hgb 9.7 (09/12) - Blood type A+, GBS pos, Rubella Immune - No signs of depression. - Routine post operative care - Discussed resting, feeding, pain control, mastitis, control, follow up in 6 weeks and reasons to call sooner, if necessary. - Continue with pain medication as needed, and continue vitamins. - Encourage breast feeding and educate about breast feeding - Patient understands and keen for home. - Plan to discharge home Resident Physician Supervision Note: I interviewed and examined the patient. Discussed with Dr. Mast and agree with findings and plan as documented in the note. Any exceptions or clarifications are listed here: [None] Documented By: Kelechi Frazier Resident Involvement: Resident Care Provided Care Provided: OB Delivery
[2016-09-13 07:31] VITALS: BP 116/72; PULSE 78; TEMP 36.6; O2SAT 96
[2016-09-13] MEDS ORDERED: OXYC-57 PO (07:32)
[2016-09-13] MEDS ORDERED: MTR600X PO (07:32)
[2016-09-13] MEDS: PRENATAL VITAMIN TAB PO SCH (07:59)
[2016-09-13] MEDS: SIMETHICONE 80 MG CHEW PO SCH ×4 (07:59→20:14)
[2016-09-13] MEDS: LEVOTHYROXINE 100 MCG TAB PO SCH (07:59)
[2016-09-13] MEDS: OXYCODONE/ACETAMINOPHEN 5-325 TAB PO PRN ×3 (08:00→17:48)
[2016-09-13] MEDS: IBUPROFEN 600 MG TAB PO PRN ×3 (08:00→17:48)
[2016-09-13] MEDS: DOCUSATE SODIUM 100 MG CAP PO SCH ×2 (08:02→20:14)
[2016-09-13 15:45] VITALS: BP 129/75; PULSE 70; TEMP 37; O2SAT 96
[2016-09-13] MEDS ORDERED: ONDANSETRON 4 MG TAB PO PRN (21:15)
[2016-09-14 00:50] VITALS: BP 121/74; PULSE 68; TEMP 36.9
--- NOTE | 2016-09-14 01:48 | OB/GYN Progress Note ---
CHECKER PRODUCT DESIGN Progress Note Date of Service Sep 14, 2016. Subjective conversation w/ patient, physical exam, chart review, lab review Ambulation: ambulating normally Voiding: no voiding problems Passing Gas: Yes Diet Tolerance: Regular Diet Lochia: Small Feeding Type: Breast Feeding Pain: 2/10 Review of Systems Constitutional: No fever Respiratory: No shortness of breath Cardiac: No chest pain Abdomen: No nausea, No vomiting Female : No dysuria Objective Vital Signs Date Time Temp Pulse Resp B/P (MAP) Pulse Ox O2 Delivery O2 Flow Rate FiO2 09/14/16 00:50 Room Air 09/14/16 00:50 36.9 68 18 121/74 (90) Room Air 09/13/16 15:45 96 Room Air 09/13/16 15:45 37.0 70 16 129/75 (93) 96 Room Air 2.0 09/13/16 08:00 Room Air 09/13/16 07:31 36.6 78 16 116/72 (87) 96 Room Air Physical Exam General Appearance: WELL-APPEARING Respiratory/Chest: lungs clear, normal breath sounds, no respiratory distress Cardiovascular: regular rate, rhythm Abdomen: normal bowel sounds, non tender, soft Fundus: Firm, Relation to Umbilicus (3 FB) Incision Description: Clean, Dry & Intact Extremities: non-tender, no pedal edema Laboratory Results Last Resulted 09/11/16 05:58 Red Blood Count 3.26, Mean Corpuscular Volume 91.1, Mean Corpuscular Hemoglobin 30.4, Mean Corpuscular Hemoglobin Concent 33.3, Mean Platelet Volume 10.3, Neutrophils (%) (Auto) 79.5, Lymphocytes (%) (Auto) 10.8, Monocytes (%) (Auto) 8.9, Eosinophils (%) (Auto) 0.2, Basophils (%) (Auto) 0.1, Neutrophils # (Auto) 15.53, Lymphocytes # (Auto) 2.11, Monocytes # (Auto) 1.73, Eosinophils # (Auto) 0.03, Basophils # (Auto) 0.02 09/12/16 06:12 Medications Current Inpatient Medications Medications (Trade) Dose Ordered Sig/Kareen Route Start Time Stop Time Status Last Admin Dose Admin Dextrose (Dextrose 50% 50ML Syringe) 25-50mL of 50% DW IV ... UD PRN IV 09/09/16 09:00 10/09/16 08:59 Glucose (Glucose 40% Gel) 15-30 GRAMS 15 GRAMS... UD PRN PO 09/09/16 10:15 10/09/16 10:14 Glucose (Glucose Chew Tab) 4-8 Tablets 4 Tabl... UD PRN PO 09/09/16 10:15 10/09/16 10:14 Dextrose (Dextrose 50% 50ML Syringe) 25-50ML OF 50% DW IV FOR... UD PRN IV 09/09/16 10:15 10/09/16 10:14 Glucagon (Glucagon Inj) 1 mg UD PRN SQ 09/09/16 10:15 10/09/16 10:14 Oxytocin 20 units/ Lactated Ringer's 1,002 ml @ 125 mls/hr Q8H1M IV 09/10/16 22:30 10/10/16 22:29 09/11/16 06:44 125 MLS/HR Lactated Ringer's 1,000 ml @ 125 mls/hr Q8H IV 09/11/16 06:30 10/11/16 06:29 Ketorolac Tromethamine (Toradol Inj) 30 mg Q6H PRN IV. 09/11/16 15:45 09/16/16 15:44 Meperidine HCl (Demerol Inj) 50 mg Q4H PRN IV 09/11/16 15:45 09/25/16 15:44 Meperidine HCl (Demerol Inj) 75 mg Q4H PRN IV 09/11/16 15:45 09/25/16 15:44 Oxycodone/ Acetaminophen (Percocet 5-325mg Tab) 1 tab Q4H PRN PO 09/11/16 15:45 09/25/16 15:44 09/13/16 17:48 1 TAB Oxycodone/ Acetaminophen (Percocet 5-325mg Tab) 2 tab Q4H PRN PO 09/11/16 15:45 09/25/16 15:44 Ibuprofen (Motrin Tab) 600 mg Q4H PRN PO 09/10/16 22:00 10/10/16 21:59 09/13/16 17:48 600 MG Promethazine HCl 25 mg/Sodium Chloride 51 ml @ 204 mls/hr Q4H PRN IV 09/11/16 15:45 9/4/17 15:44 Ondansetron HCl (Zofran Inj) 4 mg Q4H PRN IV 09/11/16 15:45 10/11/16 15:44 Prenat Multivit/ [place]/Iron/Folic Ac ( Vitamin Tab) 1 tab DAILY PO 09/11/16 08:00 10/11/16 07:59 09/13/16 07:59 1 TAB Bisacodyl (Dulcolax Supp) 10 mg PRN PRN MT 09/12/16 22:45 10/12/16 22:44 Docusate Sodium (coLACE CAP) 100 mg BID PO 09/11/16 08:00 10/11/16 07:59 09/13/16 20:14 100 MG Magnesium Hydroxide (Milk Of Magnesia Susp) 30 ml HS PRN PO 09/10/16 22:00 10/10/16 21:59 Cocaine HCl (Supercream 0.870% Cr) BID PRN EXT 09/10/16 22:00 09/24/16 21:59 Lanolin (Lanolin Oint) PRN PRN EXT 09/10/16 22:00 10/10/16 21:59 Hydrocortisone Acetate (Anusol Hc Supp) 25 mg BID PRN MT 09/10/16 22:00 10/10/16 21:59 Benzocaine (Dermoplast Aero Spr) 1 appln PRN PRN EXT 09/10/16 22:00 10/10/16 21:59 Zolpidem Tartrate (Ambien Tab) 5 mg HSZ PRN PO 09/11/16 15:45 10/11/16 15:44 Simethicone (Mylicon Chew Tab) 80 mg QID PO 09/11/16 08:00 10/11/16 08:59 09/13/16 20:14 80 MG Diphenhydramine HCl (Benadryl Cap) 25 mg QID PRN PO 09/11/16 15:45 10/11/16 15:44 Senna (Senokot Tab) 17.2 mg HS PRN PO 09/10/16 22:00 10/10/16 21:59 Ondansetron HCl (Zofran Inj) 4 mg ONE PRN IV 09/10/16 22:15 Levothyroxine Sodium (Synthroid Tab) 100 mcg DAILYBB PO 09/12/16 09:00 10/12/16 08:59 09/13/16 07:59 100 MCG Ferrous Sulfate (Feosol Tab) 325 mg QAM PO 09/14/16 08:00 10/14/16 07:59 Ondansetron HCl (Zofran Tab) 4 mg Q6H PRN PO 09/13/16 21:15 10/13/16 21:14 09/13/16 21:42 4 MG Assessment and Plan Post-Op Day Number: 4 Continue Routine Care: Resident Physician Supervision Note: I interviewed and examined the patient. Discussed with Dr. Sherrell Mast and agree with findings and plan as documented in the note. Any exceptions or clarifications are listed here: complaining of itchy rash on abdomen & legs. will prescribe 2.5% hydrocortisone lotion & send it to her pharmacy. Documented By: Flaquita Crenshaw A/P: This is a 31 y/o female, , POD#4 s/p for FTD. She is ambulating and clinically stable to discharge. - Vital signs are reviewed and WNL (Tmax 37 ) - Last Hgb 9.7 (09/12) - Blood type A+, GBS pos, Rubella Immune - No signs of depression. - Routine post operative care - Discussed resting, feeding, pain control, mastitis, control, follow up in 6 weeks and reasons to call sooner, if necessary. - Continue with pain medication as needed, and continue vitamins. - Encourage breast feeding and educate about breast feeding - Patient understands and keen for home. - Plan to discharge home Resident Involvement: Resident Care Provided Care Provided: OB Delivery
[2016-09-14] MEDS: SIMETHICONE 80 MG CHEW PO SCH (07:36)
[2016-09-14] MEDS: DOCUSATE SODIUM 100 MG CAP PO SCH (07:37)
[2016-09-14] MEDS: PRENATAL VITAMIN TAB PO SCH (07:38)
[2016-09-14] MEDS: LEVOTHYROXINE 100 MCG TAB PO SCH (07:38)
[2016-09-14 07:44] VITALS: BP 124/72; PULSE 82; TEMP 36.8; O2SAT 96
[2016-09-14] MEDS ORDERED: FERROUS SULFATE 325 MG TAB PO SCH (08:00)
[2016-09-14 10:58] VITALS: BP_DIAS 72; PULSE 82; TEMP 36.8
--- NOTE | 2016-09-17 00:18 | DISCHARGE SUMMARY ---
Adelaida had a section on 09/10/2016. By 09/14/2016, she met discharge criteria, this was postop day #3. At this time, she was ambulating well, tolerating an oral diet, had no difficulties with voiding and had no extremity pain. Minimal bleeding. PHYSICAL EXAMINATION: VITAL SIGNS: Stable. She is afebrile. Incision clean, dry and intact. IMPRESSION AND PLAN: Hemoglobin 9.7. Given prescriptions for pain medications. DISCHARGE INSTRUCTIONS: Told to follow up in the office.
== END 2016-09-14 12:45 | disposition home or self-care (01) | DRG 766 ==
LOC: C.LD 07:54 → C.OBG 09-11 00:37
PROVIDERS: ADMIT Obstetrics & Gynecology; ATTEND Obstetrics & Gynecology
PROC: 10D00Z1 Extraction of Products of Conception, Low, Open Approach (ICD-10-PCS; principal; 2016-09-10 20:16)
DX: O99.824 Streptococcus B carrier state complicating childbirth (principal); O32.4XX0 Maternal care for high head at term, not applicable or unspecified; O99.280 Endocrine, nutritional and metabolic diseases complicating pregnancy, unspecified trimester; E03.9 Hypothyroidism, unspecified; O24.424 Gestational diabetes mellitus in childbirth, insulin controlled; O99.345 Other mental disorders complicating the puerperium; F41.9 Anxiety disorder, unspecified; O99.89 Other specified diseases and conditions complicating pregnancy, childbirth and the puerperium; G43.909 Migraine, unspecified, not intractable, without status migrainosus; Z88.0 Allergy status to penicillin; Z79.4 Long term (current) use of insulin; Z79.899 Other long term (current) drug therapy; Z37.0 Single live birth; Z3A.39 39 weeks gestation of pregnancy

== ENCOUNTER 2018-06-29 05:54 | Inpatient (IN) ==
--- NOTE | 2018-06-28 15:25 | PAT Medication Instructions ---
Medication Instructions Date of Service June 28, 2018 Home Medications diphenhydramine HCl [Benadryl] 25 mg PO UD PRN [ DHA] 200 mg HS [Humulin N NPH U-100 Insulin] 15 unit SUBCUT HS levothyroxine 175 mcg PO QAM ondansetron HCl [Zofran] 4 mg PO UD PRN ranitidine HCl [Zantac 75] 75 mg PO UD PRN DO NOT take the morning of surgery diphenhydramine HCl [Benadryl] 25 mg PO UD PRN Take morning of surgery With a small sip of water, OTHERWISE NOTHING TO EAT OR DRINK AFTER MIDNIGHT: levothyroxine 175 mcg PO QAM ondansetron HCl [Zofran] 4 mg PO UD PRN (if needed) ranitidine HCl [Zantac 75] 75 mg PO UD PRN (if needed) Take evening before surgery diphenhydramine HCl [Benadryl] 25 mg PO UD PRN (if needed) [ DHA] 200 mg HS [Humulin N NPH U-100 Insulin] 15 unit SUBCUT HS ondansetron HCl [Zofran] 4 mg PO UD PRN (if needed) ranitidine HCl [Zantac 75] 75 mg PO UD PRN (if needed) Other Notes If you have any questions please call us at [phone] or [phone] or [phone] or [phone]
--- NOTE | 2018-06-28 15:44 | Anesthesiology Consultation ---
Date of Service June 28, 2018 Assessment & Plan (1) Encounter for pre-operative examination: Chart Review Chart Review: Acceptable Risk for Surgery and Patient seen in Pre Admission Testing Teaching & Discussion Instructed NPO after midnight before surgery, except medications with 15 cc of water. Medication instructions provided according to the PAT guidelines. History Surgery Operation Date: 06/29/18 07:30 Proposed Procedures p Section - Carlene Hooper MD, FACOG Height/Weight Height: 4 ft 11 in Weight: 94 kg Allergies Allergy/AdvReac Type Severity Reaction Status Date / Time amoxicillin Allergy Severe hives Unverified 06/22/18 08:04 Medications Home Medications Medication Instructions Recorded Confirmed Last Taken diphenhydramine HCl [Benadryl] 25 mg PO UD PRN 06/22/18 06/22/18 Unknown docosahexanoic acid [ DHA] 200 mg HS 06/22/18 06/22/18 Unknown levothyroxine 175 mcg PO QAM 06/22/18 06/22/18 06/22/18 ondansetron HCl [Zofran] 4 mg PO UD PRN 06/22/18 06/22/18 Unknown ranitidine HCl [Zantac 75] 75 mg PO UD PRN 06/22/18 06/22/18 Unknown insulin NPH isoph U-100 human 15 unit SUBCUT HS 06/28/18 06/28/18 Unknown [Humulin N NPH Insulin KwikPen] Past Medical History Medical History Acid reflux Gestational diabetes Hypothyroid Nausea and vomiting after administration of anesthetic agent DURING C/S No family history of adverse response to anesthesia PUPP (pruritic urticarial papules and plaques of ) Sleep apnea CPAP- INCONSISTENT USE OF Exercise / Class Metabolic Activity II 4-5 Yardwork/Stairs/Walk up hill (some SOB with stairs in ) Past Surgical History Surgical History History of 37 hours of labor with no progression, epidural dosed for C/S [place] teeth extracted Past Anesthesia History No Hx of Anesthesia Complications (other than PONV) and No Family Hx of Anesthesia Complications History of PONV No Hx of Motion Sickness and History of PONV Social History Smoking Status: Never smoker Do You Dip or Chew Tobacco: No Hx Alcohol Use: No (NONE SINCE ) Hx Substance Use: No substance use type: does not use Review of Systems Pt denies any recent chest pain, shortness of breath, palpitations, cough, fever or URI. Physical Exam Vital Signs BP: 126/72 P: 93bpm SPO2: 96% RA T: 98.3 F R: 16 ENMT Mouth: no dental restorations, no chipped teeth and no loose teeth Thyromental Distance: > or= 3.5 Finger Breadths (4) Mallampati Class: II Neck normal visual inspection; neck extension not limited Respiratory normal respiratory effort Auscultation: lungs clear to auscultation bilaterally Cardiovascular Rate/Rhythm: regular rate and regular rhythm Heart Sounds: no murmur
--- NOTE | 2018-06-28 17:54 | History and Physical Report ---
DATE OF ADMISSION: 06/29/2018 DATE OF SURGERY PLANNED: For 06/29/2018. PREOPERATIVE DIAGNOSES: 1. Intrauterine at 39-4/7 weeks. 2. History of previous section for failure to descend and a 3-hour push. 3. Gestational diabetes mellitus, on insulin. HISTORY OF PRESENT ILLNESS: The patient is a 2, para 1-0-0-1 with an EDC of 07/02/2018 based on a first trimester ultrasound different from her LMP, who presents today for repeat section. Her first baby was delivered in September of 2016 at 39-4/7 weeks. She had a after pushing for 3 hours with failure to descend. She declines trial of labor. This has been complicated by a partial previa that resolved at 32 weeks and insulin-requiring gestational diabetes. Her last ultrasound which was 06/06/2018 at 36-2/7 weeks revealed an estimated weight of 58th percentile and an AC in the 77th percentile. She notes no labor symptoms. Good movement. PAST OBSTETRIC AND GYNECOLOGIC HISTORY: As noted above. She notes no history of abnormal Pap smears or sexually transmitted illnesses. PAST MEDICAL HISTORY: Significant for migraines, anxiety for which she has taken Zoloft in the past, hypothyroidism for which she is taking Synthroid, and gestational diabetes. She denies asthma, heart disease, heart murmur, kidney or liver issues. PAST SURGICAL HISTORY: Includes a and wisdom teeth removal. MEDICATIONS: Insulin, vitamins, Synthroid 175 mcg, and Zofran 4 mg as needed. She is not currently taking Zoloft. ALLERGIES: AMOXICILLIN TABS CAUSING HIVES. PHYSICAL EXAMINATION: GENERAL: This is a well-developed, well-nourished white female who is in no acute distress. VITAL SIGNS: Blood pressure 118/84, weight 206.8 pounds. NECK: Supple. CARDIOVASCULAR: Regular rate and rhythm. CHEST: Clear to auscultation bilaterally. ABDOMEN: Soft, gravid, nontender. EXTREMITIES: Show some trace edema but are otherwise benign. PELVIC: Deferred. LABORATORY DATA: Blood type A positive, no funny antibody, rubella immune, RPR nonreactive, hepatitis B negative, HIV negative, chlamydia and gonorrhea cultures negative. Cell-free DNA negative/low risk. GBS negative. She was a gestational diabetic in her previous , so has been treated as gestational diabetic in this . ASSESSMENT: The patient is a 2, para 1-0-0-1 at 39-4/7 weeks who presents for repeat section. The risks of the procedure were discussed with the patient including the risks of anesthesia, bleeding requiring transfusion, infection, poor wound healing, damage to surrounding structures including bowel, bladder, vessels, nerves, and ureters with need for further surgery, hospitalization, or intervention. We discussed the risks of any surgery including heart attack, blood clot, stroke, or . We discussed preoperative antibiotics, SCDs for clot prevention. The patient is not interested in sterilization at the time of her section. Consent was reviewed and signed.
[~2018-06-29 05:54] MED LIST changes: -INSU1INJ SC; +LACTATED RINGER'S 1,000 ML IV SCH; -LEVO150T9 PO; -ONDA4TAB10 SL; -PRENTAB26 PO
[2018-06-29] MEDS ORDERED: CITRIC ACID/SODIUM CITRATE 15 ML UDC PO SCH (06:00)
[2018-06-29] MEDS ORDERED: CEFAZOLIN 3000MG 65 ML IV SCH (06:00)
[2018-06-29 06:18] LABS: Basophils # (auto) 0.02 K/uL (0-0.2); Basophils % (auto) 0.2 %; Eosinophils # (auto) 0.13 K/uL (0-0.5); Eosinophils % (auto) 1.3 %; Hematocrit (blood only) 36.9 % (37-47); Hemoglobin 12.3 g/dL (12.0-16.0); Immature Granulocytes # (auto) 0.04 K/uL (0.00-0.02); Immature Granulocytes % (auto) 0.4 %; Lymphocytes # (auto) 2.35 K/uL (1.2-3.4); Lymphocytes % (auto) 24.3 %; Mean Corpuscular Volume 89.8 fL (80-100); Mean Platelet Volume 10.8 fL (7.4-10.4); Monocytes # (auto) 0.71 K/uL (0.11-0.59); Monocytes % (auto) 7.3 %; Neutrophils # (auto) 6.43 K/uL (1.4-6.5); Neutrophils % (auto) 66.5 %; Platelet Count 181 K/uL (130-400); RDW Coefficient of Variation 14.6 % (11.5-14.5); RDW Standard Deviation 47.6 fL (36.4-46.3); Red Blood Count 4.11 M/uL (4.2-5.4); White Blood Count 9.68 K/uL (4.8-10.8)
[2018-06-29 06:20] LABS: Mean Corpuscular Hgb Conc 33.3 g/dL (32-36)
[2018-06-29] MEDS ORDERED: LACTATED RINGER'S 1,000 ML IV SCH ×2 (06:31→08:45)
[2018-06-29] MEDS ORDERED: MoRPHine SULFATE PF 1 MG/ML 10 ML AMP/VIAL ONE (07:19)
[2018-06-29] MEDS ORDERED: fentaNYL citrate 100 MCG/2 ML VIAL ONE (07:19)
[2018-06-29] MEDS ORDERED: ePHEDrine sulfate 50 MG/ML AMP IV PRN (07:32)
[2018-06-29] MEDS ORDERED: MoRPHine SULFATE 2 MG/ML CARP IV PRN (07:32)
[2018-06-29] MEDS ORDERED: KETOROLAC 30 MG/ML VIAL IV PRN (07:32)
[2018-06-29] MEDS ORDERED: NALOXONE HCL 1 MG in SODIUM CHLORIDE 0.9% 1000ML 1,000 ML IV PRN (07:32)
[2018-06-29] MEDS ORDERED: DiphenhydrAMINE HCL 50 MG/ML VIAL IV PRN (07:32)
[2018-06-29] MEDS ORDERED: NALBUPHINE HCL INJ 10 MG/ML AMP IV PRN (07:32)
[2018-06-29] MEDS ORDERED: LACTATED RINGER'S 500 ML IV PRN (07:32)
[2018-06-29] MEDS ORDERED: MoRPHine SULFATE PF 1 MG/ML 10 ML AMP/VIAL INT SPINAL ONE (07:32)
[2018-06-29] MEDS ORDERED: PROMETHAZINE HCL 6.25 MG in SODIUM CHLORIDE 0.9% 50 ML IV PRN ×2 (07:32→13:13)
[2018-06-29] MEDS ORDERED: NALOXONE HCL 0.4 MG/1 ML VIAL/CARP IV PRN (07:32)
[2018-06-29] MEDS ORDERED: NALOXONE HCL 0.08 MG in SYRINGE 1.8 ML IV PRN (07:32)
[2018-06-29] MEDS ORDERED: SODIUM CHLORIDE 0.9% 1000ML 1,000 ML IV SCH (07:45)
[2018-06-29] MEDS ORDERED: NO NARCOTICS OR SEDATIVES SCH (07:45)
[2018-06-29] MEDS ORDERED: DIPHTHERIA/TETANUS/PERTUSSIS 0.5 ML SYR/VIAL IM ONE (08:34)
[2018-06-29] MEDS ORDERED: HYDROCORTISONE ACETATE 25 MG SUPP PR PRN (08:34)
[2018-06-29] MEDS ORDERED: SUPERCREAM 0.870% 15 GM JAR EXT PRN (08:34)
[2018-06-29] MEDS ORDERED: BENZOCAINE 20% AER SPR 82.5 GM CAN EXT PRN (08:34)
[2018-06-29] MEDS ORDERED: KETOROLAC 30 MG/ML VIAL ONE (08:37)
[2018-06-29] MEDS ORDERED: ONDANSETRON INJ 2 MG/ML 2 ML VIAL ONE (08:37)
[2018-06-29] MEDS ORDERED: OXYTOCIN 10 UNITS/ML VIAL ONE (08:37)
[2018-06-29] MEDS ORDERED: OXYTOCIN 20 UNITS in LACTATED RINGER'S 1,000 ML IV SCH (08:45)
--- NOTE | 2018-06-29 08:45 | Post Operative Brief Note ---
Immediate Post Op Note v1 Date of Surgery June 29, 2018 Pre & Post Diagnosis Operation Date: 06/29/18 07:30 Pre-Op Diagnosis: at 39 weeks History of primary section Desires repeat sec tion Post-Op Diagnosis: same Procedure Operation Date: 06/29/18 07:30 Repeat lower transverse with live male at 8:10<No data on this case meets the specified criteria> Surgeon Carlene Hooper MD, FACOG In Flight Refueling Operator Dr. Fan Estimated Blood Loss 600 Findings Consistent with Post-Op Diagnosis Drains [place] Catheter
--- NOTE | 2018-06-29 09:00 | Anesthesiology Progress Note ---
Date of Service June 29, 2018 Anesthesia Post Procedure Vital Signs Vital Signs: Pulse BP Pulse Ox 06/29/18 08:58 94 H 98 06/29/18 08:53 73 99 06/29/18 08:51 73 118/70 06/29/18 08:48 76 98 Transfer of Care Handoff Completed per policy Notes Mental Status: alert / awake / arousable Patient Amnestic to Procedure: No (spinal without sedation) Nausea / Vomiting: adequately controlled Pain: adequately controlled Airway Patency, RR, SpO2: stable & adequate BP & HR: stable & adequate Hydration State: stable & adequate Neuraxial Anesthesia: was administered and sensory block is resolving Anesthetic Complications: no major complications apparent and Pt Satisfied with anesthetic care
--- NOTE | 2018-06-29 09:41 | Operative Report ---
DATE OF OPERATION: 06/29/2018 PREOPERATIVE DIAGNOSES: 1. Intrauterine at 39 and 4/7th weeks. 2. History of previous section, desires repeat. POSTOPERATIVE DIAGNOSES: 1. Intrauterine at 39 and 4/7th weeks. 2. History of previous section, desires repeat. PROCEDURE: Repeat lower transverse section. SURGEON: Carlene Hooper MD. WIRELESS SALES MANAGER: Bobby Fan, PGY-1. ANESTHESIA: Spinal. ESTIMATED BLOOD LOSS: 600 mL. FLUIDS: A liter. URINE OUTPUT: 150 mL of clear yellow urine drained from the bladder at the end of the procedure. INDICATIONS: The patient is at 39 and 4/7th weeks with a history of a previous section after failure to descend status post 3-hour push. She desires repeat section. FINDINGS: Viable male in cephalic presentation, no nuchal cord. Apgars 9 and 9. Normal uterus and tubes, normal right ovary. Left ovary contained a probable small 2 cm cyst, but otherwise the ovarian parenchyma appeared normal. COMPLICATIONS: None. DRAINS: [place]. DISPOSITION: To Recovery Room in stable condition. DESCRIPTION OF PROCEDURE: The patient was taken to the Operating Room where she was identified verbally and by bracelet. She was seated on the operating table where spinal anesthetic was placed by Anesthesia. She was then placed in dorsal supine position with a leftward tilt. A [place] catheter was placed sterilely and she was prepped and draped in normal sterile fashion. A time-out was held, identifying correct patient, procedure, positioning and preoperative antibiotic use. There were no concerns. A Pfannenstiel skin incision was made with a knife, taken down to the underlying layer of fascia with the knife. Bleeding was attended to with Bovie electrocautery. The knife was used to incise the fascia in the midline and it was taken out laterally with scissors. The superior edge of the fascial incision was grasped, elevated and the underlying layer of rectus muscle was taken off bluntly and with scissors. We did enter the peritoneum. While doing this, there were adhesions of the peritoneum to the fascia that were taken down sharply and with Bovie electrocautery. In a similar fashion, the inferior edge of the fascial incision was grasped, elevated and the underlying layer of rectus muscle was taken off bluntly and with scissors. The muscles had been previously . The peritoneum had been entered sharply previously. The omentum had been removed from the anterior abdominal wall and then the incision was stretched with the game operator's hands. The bladder blade was replaced. There were no other omental adhesions noted. The bladder flap was created by grasping the vesicouterine peritoneum entering with scissors, taken out laterally and creating the bladder flap digitally. The bladder blade was replaced. Hysterotomy incision was scored with a knife and was entered with a knife. Clear fluid was released. The game operator's hands were placed into the incision and it was stretched laterally. The game operator's hand was gently placed into the uterus. The head that was floating, was lifted up into the incision. It was a tight fit and so the vacuum was called for. The vacuum was applied x1 and with fundal pressure, the head was delivered with 1 pop off. The nose and mouth were bulb suctioned. There was no nuchal cord. The rest of the was then delivered. The infant was vigorous and crying on the surgical field. The cord was clamped and cut. The infant was handed off to maternal pediatricians for drying and attention. Cord blood and segment were obtained. The placenta was manually extracted. The uterus was exteriorized and cleared of all clot and debris with moistened laparotomy sponges. Hysterotomy incision was repaired in 2 layers, first a running locked layer, the second in an imbricating layer. The posterior cul-de-sac was then irrigated and cleared of all clot and debris. The hysterotomy incision was expected and found to be hemostatic. The uterus was reanteriorized, bladder blade was replaced. The hysterotomy incision was again inspected. Some bleeding edges were attended to with Bovie electrocautery until hemostasis was assured. The rectus muscle/peritoneum was reapproximated using several interrupted sutures of 0 Vicryl as the omentum was pushing up between the muscles. The fascia was then reapproximated with 0 Vicryl starting at the corners and meeting at the midline. The subcuticular tissue was irrigated with warm normal saline. Bleeding was attended to with Bovie electrocautery and the skin was closed with subcuticular stitch of 4-0 Vicryl. All sponge, lap and needle counts were correct x2. The patient tolerated the procedure well and was taken to Recovery Room in stable condition. I attest to the content of the Intraoperative Record and any orders documented therein. Any exception s are noted below.
[2018-06-29] MEDS ORDERED: ePHEDrine sulfate 50 MG/ML AMP IV STA (12:35)
[2018-06-29] MEDS: DOCUSATE SODIUM 100 MG CAP PO SCH ×2 (12:44→20:01)
[2018-06-29] MEDS: SIMETHICONE 80 MG CHEW PO SCH ×4 (12:44→20:01)
[2018-06-29] MEDS: FERROUS SULFATE 325 MG TAB PO SCH (12:44)
[2018-06-29] MEDS: PRENATAL VITAMIN 1 TAB PO SCH (12:45)
[2018-06-29] MEDS: ONDANSETRON INJ 2 MG/ML 2 ML VIAL IV PRN ×2 (12:46→19:49)
[2018-06-29] MEDS ORDERED: SCOPOLAMINE 1.5 MG TDSY TD SCH (13:30)
[2018-06-29] MEDS: CHECK SCOPOLAMINE PATCH PLACEMENT SCH (16:00)
[2018-06-29] MEDS ORDERED: LACTATED RINGER'S 500 ML IV ONE (19:46)
[2018-06-30] MEDS ORDERED: PROMETHAZINE HCL 25 MG in SODIUM CHLORIDE 0.9% 50 ML IV PRN (01:23)
[2018-06-30] MEDS ORDERED: MEPERIDINE HCL 50 MG/ML CARP IV PRN (01:32)
[2018-06-30] MEDS ORDERED: ONDANSETRON INJ 2 MG/ML 2 ML VIAL IV PRN (01:32)
[2018-06-30] MEDS ORDERED: DiphenhydrAMINE HCL 50 MG/ML VIAL IV PRN (01:32)
[2018-06-30] MEDS ORDERED: KETOROLAC 30 MG/ML VIAL IV PRN (01:32)
[2018-06-30] MEDS ORDERED: DC INTRASPINAL MORPHINE SCH (01:32)
[2018-06-30 06:22] LABS: Basophils # (auto) 0.03 K/uL (0-0.2); Basophils % (auto) 0.3 %; Eosinophils # (auto) 0.13 K/uL (0-0.5); Eosinophils % (auto) 1.1 %; Hematocrit (blood only) 28.8 % (37-47); Hemoglobin 9.7 g/dL (12.0-16.0); Immature Granulocytes # (auto) 0.05 K/uL (0.00-0.02); Immature Granulocytes % (auto) 0.4 %; Lymphocytes % (auto) 19.9 %; Mean Corpuscular Hgb Conc 33.7 g/dL (32-36); Mean Corpuscular Volume 89.7 fL (80-100); Mean Platelet Volume 10.1 fL (7.4-10.4); Monocytes # (auto) 0.91 K/uL (0.11-0.59); Monocytes % (auto) 7.9 %; Neutrophils # (auto) 8.11 K/uL (1.4-6.5); Neutrophils % (auto) 70.4 %; Platelet Count 156 K/uL (130-400); RDW Coefficient of Variation 14.9 % (11.5-14.5); RDW Standard Deviation 48.4 fL (36.4-46.3); Red Blood Count 3.21 M/uL (4.2-5.4); White Blood Count 11.53 K/uL (4.8-10.8)
[2018-06-30] MEDS: LEVOTHYROXINE SODIUM 175 MCG TABLET PO SCH (06:40)
--- NOTE | 2018-06-30 07:13 | Obstetrical Progress Note ---
Date of Service <Bobby Fan MD - Last Filed: 06/30/18 07:13> June 30, 2018 Assessment & Plan <Bobby Fan MD - Last Filed: 06/30/18 07:13> (1) S/P repeat low transverse : 32 year old day 1 s/p Repeat LT C/S Vital Signs Reviewed and WNL Pain well controlled, incision clean dry and intact Hemoglobin 9.7 Blood type A+, GBS -, Rubella Immune Encouraged patient to start to ambulate today, will monitor for spontaneous urination, food tolerance, and ambulation today Breast feeding has been a challenge so far, encouraged further breast feeding Has some abdominal itching, prescribed hydrocortisone cream. Subjective <Bobby Fan MD - Last Filed: 06/30/18 07:13> Ambulation: limited ambulation (Just had dubois catheter pulled, hasn't ambulated yet) Passing Gas:: Yes Diet Tolerance:: clear liquids Lochia:: Small Feeding Type:: breast feeding Current Pain Level(1-10): 2 Urinary Catheter just pulled, has not been up and walking or urinated spontaneously yet. Having abdominal itching, prescribed hydrocortisone cream. Constitutional: no fever and no chills Respiratory: no cough and no dyspnea Cardiovascular: no chest pain and no dyspnea Gastrointestinal: no nausea and no vomiting Physical Exam <Bobby Fan MD - Last Filed: 06/30/18 07:13> Vital Signs (Past 24 Hours) Last Vital Signs Temp 36.8 C 06/30/18 04:25 Pulse 90 06/30/18 04:25 Resp 20 06/30/18 04:25 BP 107/69 06/30/18 04:25 Pulse Ox 94 06/30/18 04:25 Constitutional well developed, well nourished, cooperative and comfortable Respiratory normal respiratory effort, lungs clear to auscultation Cardiovascular Rate/Rhythm: regular rate and regular rhythm Heart Sounds: normal S1 and normal S2; no click, no gallop, no murmur and no cardiac rub Extremities: no calf tenderness Gastrointestinal (Abdomen) Percussion/Palpation: + abdomen tender (Mildly tender, at incision site) and abdomen soft Incision clean, dry and intact. Genitourinary OB Exam Abdomen: + fundal height Fundus: + firm and + relation to umbilicus (At umbilicus); not tender <Carlene Hooper MD, FACOG - Last Filed: 06/30/18 07:21> Co-Signing Physician Notes Resident Physician Supervision Note: I interviewed and examined the patient. Discussed with Dr. Fan and agree with findings and plan as documented in the note. Any exceptions or clarifications are listed here: Doing well. Routine care. Dubois out, void. Ambulate, advance diet as tolerated. Documented By: Carlene Hooper MD, FACOG Resident Activity Tracking <Bobby Fan MD - Last Filed: 06/30/18 07:13> Resident Involvement: Resident Care Provided Care Provided: OB Delivery
[2018-06-30] MEDS ORDERED: HYDROCORTISONE 1% CRM 30 GM TUBE EXT PRN (07:14)
[2018-06-30] MEDS: DOCUSATE SODIUM 100 MG CAP PO SCH ×2 (08:36→20:25)
[2018-06-30] MEDS: FERROUS SULFATE 325 MG TAB PO SCH (08:36)
[2018-06-30] MEDS: IBUPROFEN 600 MG TAB PO PRN ×4 (08:36→22:39)
[2018-06-30] MEDS: CHECK SCOPOLAMINE PATCH PLACEMENT SCH (08:36)
[2018-06-30] MEDS: PRENATAL VITAMIN 1 TAB PO SCH (08:36)
[2018-06-30] MEDS: SIMETHICONE 80 MG CHEW PO SCH ×4 (08:36→20:25)
--- NOTE | 2018-06-30 08:56 | Anesthesiology Progress Note ---
Date of Service June 30, 2018 Anesthesia Post Procedure Vital Signs Vital Signs: Temp Pulse Pulse Resp BP BP Pulse Ox 06/30/18 04:25 36.8 C 90 20 107/69 94 06/30/18 01:15 18 97 06/30/18 00:15 18 98 06/29/18 23:15 36.7 C 78 18 106/69 97 06/29/18 21:30 18 96 06/29/18 20:30 18 96 06/29/18 19:35 37.0 C 93 H 18 127/71 97 06/29/18 18:00 18 95 06/29/18 17:00 18 96 06/29/18 16:00 18 96 06/29/18 15:00 36.8 C 91 H 18 134/87 97 06/29/18 14:10 18 98 06/29/18 13:10 89 18 133/83 98 06/29/18 12:10 70 16 128/81 99 06/29/18 11:30 36.6 C 18 06/29/18 11:13 75 124/61 06/29/18 11:10 36.6 C 75 16 124/61 99 06/29/18 11:06 90 99 06/29/18 11:01 68 116/64 94 06/29/18 10:56 66 95 06/29/18 10:51 66 127/63 96 06/29/18 10:46 72 96 06/29/18 10:41 67 123/66 95 06/29/18 10:36 86 95 06/29/18 10:31 75 130/72 94 06/29/18 10:26 62 95 06/29/18 10:21 69 128/76 96 06/29/18 10:16 62 96 06/29/18 10:11 66 132/69 96 06/29/18 10:06 71 94 06/29/18 10:01 67 126/80 06/29/18 09:58 67 95 06/29/18 09:57 80 94 06/29/18 09:53 67 98 06/29/18 09:52 65 91 06/29/18 09:51 76 131/66 06/29/18 09:48 78 98 06/29/18 09:46 90 92 06/29/18 09:45 18 06/29/18 09:43 74 97 06/29/18 09:42 77 133/63 06/29/18 09:38 91 H 97 06/29/18 09:35 18 06/29/18 09:33 78 98 06/29/18 09:32 78 163/75 H 06/29/18 09:28 81 98 06/29/18 09:25 18 06/29/18 09:23 78 98 06/29/18 09:21 100 H 146/76 H 06/29/18 09:18 93 H 99 06/29/18 09:15 18 06/29/18 09:13 79 99 06/29/18 09:12 77 128/60 06/29/18 09:10 18 06/29/18 09:08 105 H 99 06/29/18 09:07 76 94 06/29/18 09:03 74 97 06/29/18 09:02 72 130/73 06/29/18 09:00 81 92 06/29/18 08:58 94 H 98 Notes Mental Status: alert / awake / arousable Patient Amnestic to Procedure: Yes Nausea / Vomiting: adequately controlled Pain: adequately controlled Airway Patency, RR, SpO2: stable & adequate BP & HR: stable & adequate Hydration State: stable & adequate Neuraxial Anesthesia: was administered and sensory block resolved Anesthetic Complications: no major complications apparent and Pt Satisfied with anesthetic care
[2018-06-30] MEDS: OXYCODONE/ACETAMINOPHEN 5mg/325mg TAB PO PRN ×3 (12:27→22:39)
[2018-07-01] MEDS: IBUPROFEN 600 MG TAB PO PRN ×4 (04:58→16:58)
[2018-07-01] MEDS: OXYCODONE/ACETAMINOPHEN 5mg/325mg TAB PO PRN ×4 (04:59→16:58)
[2018-07-01] MEDS: LEVOTHYROXINE SODIUM 175 MCG TABLET PO SCH (06:09)
[2018-07-01] MEDS: CHECK SCOPOLAMINE PATCH PLACEMENT SCH ×4 (06:15→16:30)
--- NOTE | 2018-07-01 06:47 | Obstetrical Progress Note ---
Date of Service <Bobby Fan MD - Last Filed: 07/01/18 06:47> July 01, 2018 Assessment & Plan <Bobby Fan MD - Last Filed: 07/01/18 06:47> (1) S/P repeat low transverse : 32 year old day 2 s/p Repeat LT C/S Vital Signs Reviewed and WNL Pain well controlled, incision clean dry and intact Hemoglobin 9.7 yesterday pending today Blood type A+, GBS -, Rubella Immune Encouraged further ambulation today Patient continuing to work on her breast feeding Itching has somewhat improved Subjective <Bobby Fan MD - Last Filed: 07/01/18 06:47> Ambulation: ambulating normally Voiding: no voiding problems Passing Gas:: Yes Diet Tolerance:: regular diet Lochia:: Small Feeding Type:: breast feeding Current Pain Level(1-10): 4 Ms Mcneil is resting comfortably, has worse pain when she gets up out of bed. Asked several questions about recovery process and seems motivated to get back up on her feet today. Constitutional: no fever and no chills Respiratory: no cough and no dyspnea Cardiovascular: no chest pain, no dyspnea and no calf pain Gastrointestinal: + abdominal pain (Incisional) and + cramping (mild); no nausea and no vomiting Physical Exam <Bobby Fan MD - Last Filed: 07/01/18 06:47> Vital Signs (Past 24 Hours) Last Vital Signs Temp 36.5 C 06/30/18 23:30 Pulse 90 06/30/18 23:30 Resp 16 06/30/18 23:30 BP 130/79 06/30/18 23:30 Pulse Ox 98 06/30/18 23:30 Constitutional well developed, well nourished, cooperative and comfortable Respiratory normal respiratory effort, lungs clear to auscultation Cardiovascular Rate/Rhythm: regular rate and regular rhythm Heart Sounds: normal S1 and normal S2; no click, no gallop, no murmur and no cardiac rub Extremities: no calf tenderness Gastrointestinal (Abdomen) Percussion/Palpation: + abdomen tender (Mildly tender, at incision site) and abdomen soft Genitourinary OB Exam Abdomen: + fundal height Fundus: + firm and + relation to umbilicus (1 cm below umbilicus); not tender <Jihan B. Katt, MD - Last Filed: 07/01/18 07:23> Co-Signing Physician Notes I have reviewed the resident's note and examined the patient myself, and agree with the note above. Resident Activity Tracking <Bobby Fan MD - Last Filed: 07/01/18 06:47> Resident Involvement: Resident Care Provided Care Provided: OB Delivery
[2018-07-01 06:51] LABS: Hematocrit (blood only) 28.3 % (37-47); Hemoglobin 9.1 g/dL (12.0-16.0)
[2018-07-01] MEDS: PRENATAL VITAMIN 1 TAB PO SCH (08:10)
[2018-07-01] MEDS: FERROUS SULFATE 325 MG TAB PO SCH (08:10)
[2018-07-01] MEDS: SIMETHICONE 80 MG CHEW PO SCH ×4 (08:10→20:25)
[2018-07-01] MEDS: DOCUSATE SODIUM 100 MG CAP PO SCH ×2 (08:10→20:25)
[2018-07-02] MEDS: LEVOTHYROXINE SODIUM 175 MCG TABLET PO SCH (07:05)
--- NOTE | 2018-07-02 07:29 | Obstetrical Progress Note ---
Date of Service July 02, 2018 Postop day #3 from the patient is well she is ambulating tolerating oral diet she has no extremity pain or bleeding is minimal Assessment & Plan (1) S/P repeat low transverse : Postop day #3 meets criteria discharge home Physical Exam Vital Signs (Past 24 Hours) Last Vital Signs Temp 36.7 C 07/02/18 01:00 Pulse 82 07/02/18 01:00 Resp 18 07/02/18 01:00 BP 117/68 07/02/18 01:00 Pulse Ox 98 07/01/18 16:15 Vital signs are stable she is afebrile Chest exam clear Abdomen soft nontender uterus firm nontender incision clean dry and intact Extremity exam negative
[2018-07-02] MEDS: OXYCODONE/ACETAMINOPHEN 5mg/325mg TAB PO PRN (07:36)
[2018-07-02] MEDS: DOCUSATE SODIUM 100 MG CAP PO SCH (07:37)
[2018-07-02] MEDS: SIMETHICONE 80 MG CHEW PO SCH ×2 (07:37→07:39)
[2018-07-02] MEDS: IBUPROFEN 600 MG TAB PO PRN (07:37)
[2018-07-02] MEDS: FERROUS SULFATE 325 MG TAB PO SCH ×2 (07:37→07:39)
[2018-07-02] MEDS: PRENATAL VITAMIN 1 TAB PO SCH (07:37)
[2018-07-02] MEDS: CHECK SCOPOLAMINE PATCH PLACEMENT SCH ×2 (09:26)
--- NOTE | 2018-07-05 23:12 | Discharge Summary ---
ADMISSION DIAGNOSES: 1. Intrauterine at 39 and 4/7 weeks. 2. History of previous section with failure to descend and 3 hour push. 3. Gestational diabetes on insulin. DISCHARGE DIAGNOSES: 1. Intrauterine at 39 and 4/7 weeks. 2. History of previous section with failure to descend and 3 hour push. 3. Gestational diabetes on insulin. PROCEDURES: Repeat lower transverse section. HISTORY OF PRESENT ILLNESS: The patient is a 2, para 1-0-0-1 with an EDC of 07/02/2018 based on a first trimester ultrasound different from her LMP who presents today for repeat section. Her first baby was delivered in September of 2016 at 39 and 4/7 weeks. She had a after pushing for 3 hours with failure to descend. She declines trial of labor. This has been complicated by a partial previa that resolved at 32 weeks and insulin requiring diabetes. Her last ultrasound which was 06/06/2018 at 36 and 2/7 weeks which revealed an estimated weight in the 58th percentile and an AC in the 77th percentile. She notes no labor symptoms and good movement. For the rest of the patient's detailed history and physical, please see her history and physical. ASSESSMENT: 2, para 1 at 39 and 4/7 weeks who presents for repeat section. HOSPITAL COURSE: The patient was admitted. She underwent a repeat lower transverse section without difficulty. ESTIMATED BLOOD LOSS: 600 mL. She delivered a viable male infant in cephalic presentation with Apgars of 9 and 9. Normal uterus and tubes were noted. Normal right ovary. Left ovary contained a probable small 2 cm cyst, but otherwise the ovarian parenchyma appeared normal. The patient's hospital course was uncomplicated. She tolerated a regular diet, ambulated without difficulty, voided after the removal of her [place] catheter. Her discharge H and H was 9.1 and 28.3. She was discharged home on Percocet and ibuprofen for pain and will return in 6 weeks for postoperative check. ALICE
== END 2018-07-02 11:58 | disposition home or self-care (01) | DRG 787 ==
LOC: 4S1 05:54 → EDSTATUS 07:30 → 4S2 11:30